=== PATIENT | female | born 1945 | race Caucasian/White ===

== ENCOUNTER 2024-08-26 09:17 | Emergency (ER) | payer MEDICARE, OTHER ==
[~2024-08-26] VITALS: Ht 162.6 cm; Wt 76.0 kg
[~2024-08-26 09:17] MED LIST: B COMPLEX1 EACH PO; CEFUROXIME500 MG PO; ELIQUIS5 MG PO; JARDIANCE10 MG PO; KRILL OIL 1,001 EACH PO; LEVOTHYROXINE100 MC2 PO; LEVOTHYROXINE100 MCG PO; OMEPRAZOLE20 MG PO; OZEMPIC1 MG/0.71 SUB-Q; TRIAMTERENE-HC1 EAC3 PO
--- OUTSIDE RECORDS SUMMARY | 2024-08-26 09:23 | XMS ---
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 Juvenal has no Care Guidelines for this patient. [facility] MO[facility] T[facility] NOTE: Visits indicate total known visits. ED/C VISIT TRACKING (12 MO.) [facility]24 09[facility] COMPLAINT: - VOMITING 08/11/2024 11:11 [facility] [place] TYPE: Emergency COMPLAINT: - WEAKNESS INPATIENT VISIT TRACKING (12 MO.) 08/11/2024 17:00 [facility] [place] TYPE: Medical Surgical COMPLAINT: - UTI DIAGNOSES: - Allergy status to other drugs, medicaments and biological substances - Allergy status to other drugs, medicaments and biological substances - Anemia, unspecified - Anemia, unspecified - Disorientation, unspecified - Disorientation, unspecified - Essential (primary) hypertension - Essential (primary) hypertension - Extrapyramidal and movement disorder, unspecified - Extrapyramidal and movement disorder, unspecified - Gastro-esophageal reflux disease without esophagitis - Gastro-esophageal reflux disease without esophagitis - Hormone replacement therapy - Hormone replacement therapy - Hypothyroidism, unspecified - Hypothyroidism, unspecified - ferry terminal agent (current) use of anticoagulants - shelter (current) use of anticoagulants - shelter (current) use of oral hypoglycemic drugs - ferry terminal agent (current) use of oral hypoglycemic drugs - Malignant neoplasm of duodenum - Malignant neoplasm of duodenum - Other fecal abnormalities - Other fecal abnormalities - Other terminal manager (current) drug therapy - Other terminal manager (current) drug therapy - Personal history of other diseases of the digestive system - Personal history of other diseases of the digestive system - Problems related to living alone - Problems related to living alone - Type 2 diabetes mellitus without complications - Type 2 diabetes mellitus without complications - Unspecified atrial fibrillation - Unspecified atrial fibrillation - Urinary tract infection, site not specified - Urinary tract infection, site not specified - Weakness [email or web address]
[2024-08-26] MEDS ORDERED: ELIQUIS5 MG PO (09:36)
[2024-08-26] MEDS ORDERED: SUCRALFATE1 GM PO (09:37)
[2024-08-26 09:42] LABS: EOSINOPHILS 3.3 % (0.7-5.8); HEMATOCRIT 32.1 % (34.1-44.9); HEMOGLOBIN 10.2 g/dL (11.2-15.7); LYMPHOCYTES 22.9 % (19.3-51.7); MCH 27.5 PG (25.6-32.2); MCHC 31.8 g/dL (32.2-35.5); MCV 86.5 fL (79.4-94.8); MONOCYTES 10.8 % (4.7-12.5); NEUTROPHILS 60.5 % (34.0-71.1); PLATELET COUNT 375 K/uL (182-369); RBC 3.71 M/uL (3.93-5.22)
[2024-08-26] MEDS ORDERED: ondansetron HCL 4 MG/2 ML VIAL IV ONE ×2 (09:45→10:15)
[2024-08-26 09:55] LABS: ALBUMIN 3.4 g/dL (3.4-5.0); ALBUMIN/GLOBULIN RATIO 0.87 (1.1-2.4); ANION GAP 14.8 (7-21); BILIRUBIN, TOTAL 0.5 mg/dL (0.2-1.0); BUN/CREATININE RATIO 20.43 (6.0-28.6); CALCIUM 10.1 mg/dL (8.5-10.1); CREATININE, SERUM 0.93 mg/dL (0.55-1.02); MAGNESIUM 1.9 mg/dL (1.8-2.4); POTASSIUM 3.8 mmol/L (3.5-5.1); PROTEIN, TOTAL 7.3 g/dL (6.4-8.2)
[2024-08-26] MEDS ORDERED: SODIUM CHLORIDE 0.9% 1,000 ML IV PRN (10:15)
[2024-08-26] MEDS ORDERED: HYDROmorphone HCL 1 MG/ML SYR IV ONE (10:15)
[2024-08-26] MEDS ORDERED: MIDAZOLAM HCL 2 MG/2 ML VIAL IV ONE (10:45)
[2024-08-26] MEDS ORDERED: PROCHLORPERAZINE EDISYLATE 10 MG/2 ML VIAL IV ONE (11:15)
[2024-08-26] MEDS ORDERED: diphenhydrAMINE HCL 50 MG/ML VIAL IV ONE (11:15)
[2024-08-26] MEDS ORDERED: HYDROCODONE-AC473 M1 PO (14:03)
[2024-08-26] MEDS ORDERED: ONDANSETRON ODT4 MG PO (14:03)
[2024-08-26] MEDS ORDERED: OXYCODONE HCL 20 MG/ML SYR PO ONE (15:00)
[2024-08-26 15:08] VITALS: BP 157/63
--- NOTE | 2024-08-27 13:13 | CONS ---
[facility] [address] [place], [place] [address] Signed DATE OF CONSULTATION: 08/26/2024 REQUESTING PHYSICIAN: Dr. Lazaro (Braden Lazaro). 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 HISTORY OF PRESENT ILLNESS: This 79-year-old white woman is known to me from the past. Recently hospitalized into the hospitalist service for urinary tract infection. Subsequently found to have anemia and upper endoscopy confirmed a large mass of the duodenum and distal stomach. Biopsies proved a high-grade B-cell lymphoma. She had concurrent ulceration which accounted for the anemia. Treatment included initiation of PPI medication and Carafate. The patient is generally chronically anticoagulated related to atrial fibrillation. I had seen her following her hospitalization last week, anticipating placement of a Port-A-Cath today. Unfortunately, the operation had to be canceled as she forgot that she was supposed to be off Eliquis, though it was emphasized to her and her sons who accompanied her at the visit. The patient presented today to the emergency room having complaints of abdominal pain. Evaluation by Dr. Lazaro included a CT scan of the abdomen which confirmed a previously irregular soft tissue mass at the level of the descending duodenum extending to the gastroduodenal junction, currently measuring 13.4 cm, previously 11.5 cm. There is no evidence of true gastroduodenal outlet obstruction at this time, though I am mindful that that was a hazard. An appointment with Dr. Wheeler, medical oncologist was anticipated for September 04. The patient's main issue has been epigastric pain. She is taking the Carafate and PPI medication as prescribed. She did have some bilious vomiting earlier this morning. She has been restricted in her diet primarily to liquids and soft food, specifically Ensure. Evaluation by Dr. Lazaro in addition to the CT scan showed her CBC to show white count of 6.38, hematocrit 32.1, which is somewhat elevated compared to discharge and platelet count 375,000. Her Chem profile showed a glucose of 162, creatinine of 93. Liver enzymes are now elevated with an SGOT of 481, SGPT 341, alkaline phosphatase of 540, though bilirubin normal at 0.5. REVIEW OF SYSTEMS: Electronically Signed By: KINGSTON GOLDMAN MD 08/27/24 1313 PATIENT NAME: KANG LARA CONSULTATION DATE OF : 45 REPORT #: [id number] PHYSICIAN: KINGSTON GOLDMAN MD PCP: ISADORA GODINEZ REPORT IS CONFIDENTIAL AND NOT TO BE RELEASED WITHOUT AUTHORIZATION [facility] [address] [place], [place] [address] Signed She is having no dysphagia. She did have some vomiting but that has only been rare and not a persistent problem. Her abdominal pain is in the epigastric and right subcostal area as would be expected. PHYSICAL EXAMINATION: GENERAL: Pleasant white woman who is alert and oriented. She is not systemically toxic. She is not dehydrated. She has received 1 L of crystalloid solution in the emergency room. She is accompanied by her daughter and her son. HEENT: Mucous membranes reasonably moist. ABDOMEN: Without distention. EXTREMITIES: Show no clubbing, cyanosis, or edema. ASSESSMENT: I walked over to the Oncology Clinic, although Dr. Wheeler was not here today. I did affirm with the nursing staff that her appointment to be moved up to tomorrow morning at 0915. We would anticipate placement of the Port-A-Cath on Sunday in any case, and chemotherapy would hopefully be initiated promptly. Rituxan chemotherapy is anticipated most likely in this situation. The tumor itself has increased in size over the past week at least 1 and possibly 2 cm in diameter and now has some effect from a biliary standpoint by obstruction, though she does not have a dilated common duct and her bilirubin is preserved. Prompt initiation of chemotherapy will be most welcome as it is highly probable she will have a rapid response to it. There is some dense material within the lumen of the partially contracted gallbladder and mild prominence of biliary tree. She is able to tolerate oral intake dominantly and I have reviewed with the patient and her family a plan to continue with a liquid diet dominantly to include also Ensure and other high density nutritional liquids of that type. She should absolutely continue with the Carafate and PPI medication as she did have ulceration in the duodenal area and absolutely avoid Eliquis at this time. We will still plan for Port-A-Cath placement on Sunday of this week and her Rituxan can be initiated even before Port-A-Cath if that is the treatment plan that Dr. Wheeler outlines. If the patient is unable to maintain oral hydration, then hospitalization will be required with fluid resuscitation and so forth but I believe the most important intervention at this time will be initiation of chemotherapy to begin reduction of the tumor bulk and initiate control of this significant neoplasm. Operative resection is not forecast in this situation by any means; the tumor will be considered nonresectable based on its anatomic appearance and its location at the confluence of the common bile duct, pancreatic head and duodenum. If the patient should have increasing problems prior to her initiation of chemotherapy, then we will deal with them as they occur. Electronically Signed By: KINGSTON GOLDMAN MD 08/27/24 9352 PATIENT NAME: KANG LARA CONSULTATION DATE OF : 45 REPORT #: [id number] PHYSICIAN: KINGSTON GOLDMAN MD PCP: ISADORA GODINEZ REPORT IS CONFIDENTIAL AND NOT TO BE RELEASED WITHOUT AUTHORIZATION [address] [facility] [place], [place] [address] Signed MD CHARLOTTE Escobedo/JESSICA /[id number] cc: Dr. Liam Lazaro Copies: ~ Electronically Signed By: KINGSTON OGLDMAN MD 08/27/24 1313 PATIENT NAME: KANG LARA CONSULTATION DATE OF : 45 REPORT #: [id number] PHYSICIAN: KINGSTON GOLDMAN MD PCP: ISADORA GODINEZ REPORT IS CONFIDENTIAL AND NOT TO BE RELEASED WITHOUT AUTHORIZATION
== END 2024-08-26 15:11 | disposition home or self-care (01) ==
LOC: ED 09:17
PROVIDERS: Emergency Medicine
DX: K31.89 Other diseases of stomach and duodenum (principal); I10 Essential (primary) hypertension; E11.9 Type 2 diabetes mellitus without complications; I48.91 Unspecified atrial fibrillation; K21.9 Gastro-esophageal reflux disease without esophagitis; Z88.8 Allergy status to other drugs, medicaments and biological substances; Z79.01 Long term (current) use of anticoagulants; Z79.899 Other long term (current) drug therapy; Z79.890 Hormone replacement therapy
CPT/HCPCS: 36415; 74177; 80053; 83735; 85025; 96361; 96375; 96376; 99284-25; J0780; J1171; J1200; J2405; J7030

== ENCOUNTER 2024-08-29 05:55 | Day surgery (SDC) | payer MEDICARE, OTHER ==
[~2024-08-29] VITALS: Ht 162.6 cm; Wt 77.7 kg
[~2024-08-29 05:55] MED LIST changes: +CEFAZOLIN SODIUM 2 GM/20 ML SYR IV SCH; +HEParin SOD (PORCINE) 5,000 UNIT/ML SDV SUB-Q SCH; +HYDROCODONE-AC473 M1 PO; +IBLOOD GLUCOSE TEST STRIP 1 EA TEST VI PRN; +LACTATED RINGER'S 1,000 ML IV SCH; +LIDOCAINE HCL 1% 5 ML SDV INJ ONE; +ONDANSETRON ODT4 MG PO; +SUCRALFATE1 GM PO
[2024-08-29 06:21] VITALS: BP 136/51
[2024-08-29] MEDS ORDERED: MAGNESIUM200 MG PO (06:26)
[2024-08-29] MEDS ORDERED: TURMERIC500 M3 PO (06:26)
[2024-08-29] MEDS ORDERED: OCUVITE EYE +1 EACH PO (06:27)
[2024-08-29] MEDS ORDERED: VITAMIN D3125 MC2 PO (06:27)
[2024-08-29] MEDS ORDERED: COQMAX UBIQUIN200 MG PO (06:28)
[2024-08-29] MEDS ORDERED: SODIUM CHLORIDE 0.9% 100 ML IV ONE (06:49)
[2024-08-29] MEDS ORDERED: HEParin SOD (PORCINE) 5,000 UNIT/ML SDV ONE (06:49)
[2024-08-29] MEDS ORDERED: iopamidoL 30 ML VIAL ONE (06:49)
[2024-08-29] MEDS ORDERED: LIDOCAINE HCL 1% 5 ML SDV INJ ONE (07:00)
[2024-08-29] MEDS ORDERED: IBLOOD GLUCOSE TEST STRIP 1 EA TEST VI PRN (07:00)
[2024-08-29] MEDS ORDERED: CEFAZOLIN SODIUM 2 GM/20 ML SYR IV SCH (07:00)
[2024-08-29] MEDS ORDERED: HEParin SOD (PORCINE) 5,000 UNIT/ML SDV SUB-Q SCH (07:00)
[2024-08-29] MEDS ORDERED: MIDAZOLAM HCL 2 MG/2 ML VIAL ONE (07:33)
[2024-08-29] MEDS ORDERED: KETAMINE in NS 50 MG/5 ML SYR ONE (07:35)
[2024-08-29] MEDS ORDERED: dexmedeTOMIDine HCl 200 MCG/2 ML VIAL ONE (07:35)
[2024-08-29] MEDS ORDERED: propofoL 200 MG/20 ML VIAL ONE (07:37)
[2024-08-29] MEDS ORDERED: GLYCOPYRROLATE 1 MG/5 ML MDV ONE (07:37)
[2024-08-29] MEDS ORDERED: SUCCINYLCHOLINE IN 0.9% NACL 200 MG/10 ML SYRINGE ONE (07:56)
[2024-08-29] MEDS ORDERED: OXYCODON-ACETA1 EAC2 PO (09:09)
[2024-08-29] MEDS ORDERED: ACETAMINOPHEN500 MG PO (09:10)
[2024-08-29] MEDS ORDERED: OXYCODONE/APAP 7.5/325 TAB PO PRN (09:15)
[2024-08-29] MEDS ORDERED: LACTATED RINGER'S 1,000 ML IV SCH (09:15)
[2024-08-29] MEDS ORDERED: ACETAMINOPHEN 500 MG TAB PO PRN (09:15)
[2024-08-29] MEDS ORDERED: NALOXONE HCL 0.4 MG SYR IV PRN ×2 (09:15→10:00)
--- NOTE | 2024-08-29 09:26 | NUR ---
08/29/24 0926 Anitha Kuo 0848- PT PRESENTS TO PACU, SEMI LUND POSITION. DROWSY BUT ANSWERS QUESTIONS APPROPRIATELY, REPORTS PAIN 5/10 AT THIS TIME, DENIES NAUSEA. ABD SOFT, NON DISTENDED. BREATHING EVEN AND NON LABORED, ON ROOM AIR, ALL MONITORS IN PLACE. 0901- PT WAKES OFF AND ON, C/O FEELING VERY "DRY". ICE CHIP PROVIDED.
[2024-08-29] MEDS ORDERED: HYDROmorphone HCL 1 MG/ML SYR IV PRN (10:00)
[2024-08-29] MEDS ORDERED: fentaNYL citrate 50 MCG/ML SDV IV PRN (10:00)
[2024-08-29] MEDS ORDERED: ondansetron HCL 4 MG/2 ML VIAL IV PRN (10:15)
[2024-08-29 10:40] VITALS: BP 120/60
--- NOTE | 2024-08-31 14:30 | OR ---
[facility] [address] [place], [place] [address] Signed DATE OF OPERATION: 08/29/2024 SURGEON: Kingston Goldman MD PREOPERATIVE DIAGNOSIS: High-grade B-cell lymphoma of duodenum. POSTOPERATIVE DIAGNOSIS: High-grade B-cell lymphoma of duodenum. PROCEDURES: 1. Right internal jugular ultrasound-guided venous access. 2. Placement of Bard port catheter internal jugular approach, right side. 3. Surgeon-directed fluoroscopy. ANESTHESIA: Local with monitored anesthesia care, Deanna Shipman CRNA and local 15 mL of 0.25% Marcaine with epinephrine. INDICATION: This 79-year-old white woman is a patient of the [facility] in [place], [place], who recently diagnosed by me with a high-grade B-cell lymphoma of the duodenum, associated ulceration and so on. She has seen Dr. Rod Atkins and chemotherapy was initiated a few days ago. A Port-A-Cath device is needed for ongoing chemotherapy. The patient and her family understand the risk of Port-A-Cath placement including, but not limited to bleeding, infection, malposition, thrombosis, transection, embolization, and numerous other possible complications. Understanding this, she wished to proceed. FINDINGS: Good visualization of the right internal jugular vein was noted on the right side and access undertaken without problem. The catheter was placed and good function was noted with the catheter in the atriocaval junction. However, additional testing showed a kink at the insertion site at the internal jugular vein. Remedy included withdrawal of the catheter and various manipulations allowing for good function of the catheter. At conclusion, the tip of the catheter was in the supererior vena cava . The catheter is completely functional both aspirating blood and infusing heparinized saline. There is no evidence of kink at the insertion site at this time. The tip of the catheter is in the superior vena cava. Electronically Signed By: KINGSTON GOLDMAN MD 08/31/24 6191 PATIENT NAME: KANG LARA OPERATIVE REPORT DATE OF : 45 REPORT #: [id number] PHYSICIAN: KINGSTON GOLDMAN MD PCP: ISADORA GODINEZ REPORT IS CONFIDENTIAL AND NOT TO BE RELEASED WITHOUT AUTHORIZATION [facility] [address] [place], [place] [address] Signed DESCRIPTION OF PROCEDURE: The patient was brought to the operating room and given preoperative antibiotic Ancef. She was placed in supine position, arms at side and head angle to the left. A mild Trendelenburg position was maintained. The upper neck and torso was prepared with a chlorhexidine solution and draped sterilely. Interrogation of the right internal jugular vein with a SonCraftistas ultrasound device was undertaken. A conventional anatomy was noted. Local anesthetic was injected over the right sternocleidomastoid muscle and on direct visualization, the right internal jugular vein accessed showing dark nonpulsatile blood. A flexible wire was passed down the needle. The needle was removed. Fluoroscopy was then employed showing the wire in the right heart system. A pocket was created over the right pectoral area with a transverse incision after additional local anesthetic was injected. Dissection was carried through the subcutaneous tissue with electrocautery. A pocket placed over the pectoralis on the right. A previously inspected Bard port device was partially secured to the pectoralis. Incision was made at the exit site of the wire in the right neck with an 11 blade. A dilator and subsequently dilator and peel-away introducer was passed over the wire. The wire and the dilator were removed showing vigorous non-pulsatile retrograde bleeding. The previously inspected Groshong type catheter for the Bard port device was passed down the peel-away introducer to its limit. The peel-away introducer removed stabilizing the catheter during that time. The catheter was aspirated, showing dark nonpulsatile blood and easily flushed. Under fluoroscopic control with the patient now in a neutral position, the tip of the catheter was manipulated to the atriocaval junction. A tunneling device was used to go over the clavicle ultimately delivering the catheter to the pocket. The catheter was trimmed to the appropriate length and secured to the port device within close collar device. Access through the port with an angled Last needle showed easy withdrawal of blood and infusion of heparinized saline. Fluoroscopy was used to confirm the position. With additional testing of the catheter, it appeared a bit more difficult to aspirate on the catheter. Inspection at the neck incision site showed a kink. The kink was such that it could be remedied by withdrawing the catheter towards the pectoralis and the catheter was would withdrawn a few centimeters, trimmed, and re-secured to the port device in the usual way per jewel stripper instructions. At that point, aspiration and irrigation was quite normal. Fluoroscopy was once again used to visualize the catheter. The kinked area was completely resolved, but the catheter had been withdrawn higher and the tip noted to reside cephalad to the head of the clavicle on the flat fouroscopic view and well below it on the upright post procedure xray. Electronically Signed By: KINGSTON GOLDMAN MD 08/31/24 4390 PATIENT NAME: KANG LARA OPERATIVE REPORT DATE OF : 45 REPORT #: [id number] PHYSICIAN: KINGSTON GOLDMAN MD PCP: ISADORA GODINEZ REPORT IS CONFIDENTIAL AND NOT TO BE RELEASED WITHOUT AUTHORIZATION [facility] [address] [place] [place] [address] Signed The port pocket was closed with interrupted Vicryl and running subcuticular 3-0 Vicryl for the skin. Steri-Strips were applied as was an Acticoat dressing. She was taken to recovery room in good condition having suffered no known complications. A chest x-ray is pending. MD CHARLOTTE Escobedo/JESSICA /[id number] cc: JOHNS[facility] MD Copies: ROD ATKINS MD ~ Electronically Signed By: KINGSTON GOLDMAN MD 08/31/24 1430 PATIENT NAME: KANG LARA OPERATIVE REPORT DATE OF : 45 REPORT #: [id number] PHYSICIAN: KIGNSTON GOLDMAN MD PCP: ISADORA GODINEZ REPORT IS CONFIDENTIAL AND NOT TO BE RELEASED WITHOUT AUTHORIZATION
== END 2024-08-29 09:55 | disposition home or self-care (01) ==
LOC: DS 05:55
PROVIDERS: ATTEND Surgery
PROC: 02HV33Z Insertion of Infusion Device into Superior Vena Cava, Percutaneous Approach (ICD-10-PCS; 2024-08-29)
PROC: 0JH60WZ Insertion of Totally Implantable Vascular Access Device into Chest Subcutaneous Tissue and Fascia, Open Approach (ICD-10-PCS; principal; 2024-08-29 07:30)
DX: C85.19 Unspecified B-cell lymphoma, extranodal and solid organ sites (principal); D63.0 Anemia in neoplastic disease; E03.9 Hypothyroidism, unspecified; I10 Essential (primary) hypertension; N39.0 Urinary tract infection, site not specified; Z79.01 Long term (current) use of anticoagulants; Z79.84 Long term (current) use of oral hypoglycemic drugs; Z79.890 Hormone replacement therapy; Z79.899 Other long term (current) drug therapy; Z88.5 Allergy status to narcotic agent; Z88.8 Allergy status to other drugs, medicaments and biological substances
CPT/HCPCS: 00532; 71045; 77001; C1788; J0330; J1644; J2250; J2704; J3490; J7121

== ENCOUNTER 2024-09-05 19:30 | Emergency (ER) | payer MEDICARE, OTHER ==
[~2024-09-05] VITALS: Ht 162.6 cm; Wt 76.4 kg
[~2024-09-05 19:30] MED LIST changes: +ACETAMINOPHEN500 MG PO; -CEFAZOLIN SODIUM 2 GM/20 ML SYR IV SCH; +COQMAX UBIQUIN200 MG PO; -HEParin SOD (PORCINE) 5,000 UNIT/ML SDV SUB-Q SCH; -IBLOOD GLUCOSE TEST STRIP 1 EA TEST VI PRN; -LACTATED RINGER'S 1,000 ML IV SCH; -LIDOCAINE HCL 1% 5 ML SDV INJ ONE; +MAGNESIUM200 MG PO; +OCUVITE EYE +1 EACH PO; +OXYCODON-ACETA1 EAC2 PO; +TURMERIC500 M3 PO; +VITAMIN D3125 MC2 PO
--- OUTSIDE RECORDS SUMMARY | 2024-09-05 19:37 | XMS ---
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 Juvenal has no Care Guidelines for this patient. Kitty VIS[facility] COUNT (12 MO.) [facility] T[facility] NOTE: Visits indicate total known visits. ED/C VISIT TRACKING (12 MO.) 09/05/2024 19:31 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 - Nausea with vomiting, unspecified - Other diseases of stomach and duodenum - Other correction (current) drug therapy - Type 2 diabetes mellitus without complications - Unspecified atrial fibrillation 08/11/2024 11:11 [facility] [place] TYPE: Emergency [...] - Hypothyroidism, unspecified - Hypothyroidism, unspecified - [facility]CC (current) use of anticoagulants - MCC (current) use of anticoagulants - MCC (current) use of oral hypoglycemic drugs - MCC (current) use of oral hypoglycemic drugs - Malignant neoplasm of duodenum - Malignant neoplasm of duodenum - Other fecal abnormalities - Other fecal abnormalities - Other ferry terminal agent (current) drug therapy - Other ferry terminal agent (current) drug therapy - Personal history of [...] tract infection, site not specified - Weakness [email or web address]
[2024-09-05] MEDS ORDERED: METFORMIN HCL500 MG PO (19:49)
[2024-09-05 20:15] LABS: HEMATOCRIT 27.6 % (34.1-44.9); HEMOGLOBIN 8.9 g/dL (11.2-15.7); MCH 26.5 PG (25.6-32.2); MCHC 32.2 g/dL (32.2-35.5); MCV 82.1 fL (79.4-94.8); PLATELET COUNT 347 K/uL (182-369); RBC 3.36 M/uL (3.93-5.22)
[2024-09-05] MEDS ORDERED: KETOROLAC TROMETHAMINE 30 MG/ML VIAL IV ONE (20:15)
[2024-09-05] MEDS ORDERED: ondansetron HCL 4 MG TAB PO ONE (20:15)
[2024-09-05] MEDS ORDERED: Methylnaltrexone Bromide 12 MG/0.6 ML VIAL SUB-Q ONE (20:15)
[2024-09-05] MEDS ORDERED: GLYCERIN 2 GM SUPP PR ONE (20:15)
[2024-09-05] MEDS ORDERED: FAMOTIDINE 20 MG/ 2 ML VIAL IV ONE (20:15)
[2024-09-05 20:24] LABS: ALBUMIN 2.8 g/dL (3.4-5.0); ALBUMIN/GLOBULIN RATIO 0.76 (1.1-2.4); ANION GAP 16.7 (7-21); BILIRUBIN, TOTAL 0.3 mg/dL (0.2-1.0); BUN/CREATININE RATIO 27.63 (6.0-28.6); CALCIUM 8.7 mg/dL (8.5-10.1); CREATININE, SERUM 0.76 mg/dL (0.55-1.02); POTASSIUM 3.7 mmol/L (3.5-5.1); PROTEIN, TOTAL 6.5 g/dL (6.4-8.2)
[2024-09-05 20:41] LABS: BASOPHILS, MANUAL DIFF 6; EOSINOPHILS, MANUAL DIFF 1; LYMPHOCYTES, MANUAL DIFF 59; MONOCYTES, MANUAL DIFF 23; NEUTROPHILS, MANUAL DIFF 11
[2024-09-05 21:18] LABS: BILIRUBIN, URINE NEGATIVE (negative); BLOOD/HGB, URINE NEGATIVE (Negative); KETONE, URINE NEGATIVE (Negative); LEUK ESTERASE, URINE NEGATIVE (negative); NITRITE, URINE NEGATIVE (negative); PH, URINE 5.5 (5-7)
[2024-09-05] MEDS ORDERED: RELISTOR150 MG PO (23:01)
[2024-09-05 23:04] VITALS: BP 135/56
== END 2024-09-05 23:18 | disposition home or self-care (01) ==
LOC: ED 19:30
PROVIDERS: Internal Medicine
DX: K59.03 Drug induced constipation (principal); T40.2X5A Adverse effect of other opioids, initial encounter; I10 Essential (primary) hypertension; E11.9 Type 2 diabetes mellitus without complications; E03.9 Hypothyroidism, unspecified; I48.91 Unspecified atrial fibrillation; K21.9 Gastro-esophageal reflux disease without esophagitis; Z79.899 Other long term (current) drug therapy; Z91.018 Allergy to other foods; Z91.013 Allergy to seafood; Z88.5 Allergy status to narcotic agent; Z88.8 Allergy status to other drugs, medicaments and biological substances
CPT/HCPCS: 36415; 74177; 80053; 81003; 83690; 85025; 96375; 99284-25; A9270; J1885; J2212; Q9967

== ENCOUNTER 2024-09-29 14:16 | Observation (INO) | payer MEDICARE, OTHER ==
[~2024-09-29] VITALS: Ht 162.6 cm; Wt 74.7 kg
[~2024-09-29 14:16] MED LIST changes: +METFORMIN HCL500 MG PO; +RELISTOR150 MG PO
--- OUTSIDE RECORDS SUMMARY | 2024-09-29 14:23 | XMS ---
PreManage Notification: KANG LARA Security Avionics Systems Technician Events No recent Security Events currently on file CRITERIA MET - [facility] - 2 Visits in 30 Days CARE PROVIDERS There are no care providers on record at this time. Juvenal has no Care Guidelines for this patient. Kitty V[facility] COUNT (12 MO.) [facility] T[facility] 4 NOTE: Visits indicate total known visits. ED/C VISIT TRACKING (12 MO.) 09[facility]29[facility]24 14:[facility] [place] [facility] COMPLAINT: - COLD SYMPTOMS 09/05/2024 19:31 [facility] [place] TYPE: Emergency COMPLAINT: - ABD PAIN DIAGNOSES: - Adverse effect of other opioids, initial encounter - Allergy status to narcotic agent - Allergy status to other drugs, medicaments and biological substances - Allergy to other foods - Allergy to seafood - Drug induced constipation - Essential (primary) hypertension - Gastro-esophageal reflux disease without esophagitis - Hypothyroidism, unspecified - Other superintendent marine oil terminal (current) drug therapy - Type 2 diabetes mellitus without complications - Unspecified abdominal pain - Unspecified atrial fibrillation 08/26/2024 09:17 [facility] [place] TYPE: Emergency COMPLAINT: - VOMITING DIAGNOSES: - Allergy status to other drugs, medicaments and biological substances - Essential (primary) hypertension - Gastro-esophageal reflux disease without esophagitis - Hormone replacement therapy - residential (current) use of anticoagulants - Nausea with vomiting, unspecified - Other diseases of stomach and duodenum - Other shelter (current) drug therapy - Type 2 diabetes [...] - Hypothyroidism, unspecified - Hypothyroidism, unspecified - 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
[2024-09-29 14:51] LABS: BASOPHILS 1.4 % (0.1-1.2); EOSINOPHILS 1.9 % (0.7-5.8); LYMPHOCYTES 4.0 % (19.3-51.7); MCH 25.1 PG (25.6-32.2); MCHC 31.6 g/dL (32.2-35.5); MCV 79.2 fL (79.4-94.8); MONOCYTES 9.8 % (4.7-12.5); NEUTROPHILS 78.0 % (34.0-71.1); RBC 4.43 M/uL (3.93-5.22)
[2024-09-29 15:01] LABS: ALT (SGPT) 26.0 U/L (14-59); AST (SGOT) 19.0 U/L (15-37); GLOMERULAR FILTRATION RATE,EST 74.0 mL/min (>60); PROTEIN, TOTAL 7.6 g/dL (6.4-8.2); UREA NITROGEN 20.0 mg/dL (7-18)
[2024-09-29] MEDS ORDERED: SODIUM CHLORIDE 0.9% 1,000 ML IV ONE (15:30)
[2024-09-29 15:36] LABS: INR 1.06 (0.80-1.30); PROTIME 13.1 Sec (11.2-14.2)
[2024-09-29] MEDS ORDERED: AZITHROMYCIN 500 MG in DEXTROSE 5% 250 ML IV ONE (15:45)
[2024-09-29] MEDS ORDERED: SODIUM CHLORIDE 0.9% 600 ML IV PRN (15:45)
[2024-09-29 16:02] LABS: LACTIC ACID, BLOOD 1.2 mmol/L (0.4-2.0)
[2024-09-29 17:15] LABS: BLOOD/HGB, URINE MODERATE (Negative); KETONE, URINE SMALL (Negative); LEUK ESTERASE, URINE NEGATIVE (negative); NITRITE, URINE POSITIVE (negative)
[2024-09-29] MEDS ORDERED: ACETAMINOPHEN 325 MG TAB PO ONE (17:15)
[2024-09-29 17:22] LABS: BACTERIA, URINE 1+ /hpf (negative); CASTS, URINE NONE SEEN \\lpf; CRYSTALS, URINE NONE SEEN (0-1+); EPITHELIAL CELLS, URINE SQUAMOUS 1+ /lpf (0-1+); REFLEX CULTURE, URINE Yes (No)
[2024-09-29 17:57] LABS: INFLUENZA B NAA NEGATIVE (NEGATIVE); RESPIRATORY SYNCYTIAL VIR NAA NEGATIVE (NEGATIVE)
[2024-09-29] MEDS ORDERED: PANTOPRAZOLE SODIUM 40 MG/10 ML VIAL IV ONE (19:30)
[2024-09-29 20:12] VITALS: BP 125/57
[2024-09-29 20:30] VITALS: BP 125/57
--- NOTE | 2024-09-29 20:30 | NUR ---
pt ARRIVED TO THE FLOOR VIA STRETCHER. pt ABLE TO WALK FROM THE STRETCHER TO THE BED WITH NO TROUBLES. pt GOT UP TO GO TO THE BR. IV ASSESSED, WNL. ASSESSMENT AND VITAL SIGNS DONE. ADMISSION DONE. WATER REFRESHED. pt DENIES ANY OTHER NEEDS AT THIS TIME. CALL LIGHT WITHIN REACH.
[2024-09-29] MEDS ORDERED: LINEZOLID 600 MG BAG IV SCH (21:00)
--- NOTE | 2024-09-29 21:40 | NUR ---
IN RM TO HANG IV ABX. pt RESTING IN THE BED WITH EYES CLOSED. RR EVEN AND UNLABORED. CALL LIGHT WITHIN REACH. IV ABX INFUSING PER ORDER.
[2024-09-29] MEDS ORDERED: PIPERACILLIN/TAZOBACTAM 4.5 GM in SODIUM CHLORIDE 0.9% 100 ML IV SCH (22:00)
--- NOTE | 2024-09-29 22:46 | NUR ---
IN RM TO HANG IV ABX. IV ABX INFUSING PER ORDER. pt UP TO THE BR, SBA FOR LINE/TUBE MANAGEMENT. pt DENIES ANY OTHER NEEDS AT THIS TIME. CALL LIGHT WITHIN REACH.
--- NOTE | 2024-09-29 23:30 | NUR ---
pt PLACED ON CPOX PER ORDER. pt DASATTING DOWN TO 85% ON RA WHILE ASLEEP. pt PLACED ON 2LNC AND NOW SATTING AT 92%. pt DENIES ANY OTHER NEEDS AT THIS TIME. CALL LIGHT WITHIN REACH.
[2024-09-30] VITALS (7 sets, daily range): BP systolic 113–134; BP diastolic 46–54
--- NOTE | 2024-09-30 00:46 | NUR ---
PATIENT CALLED TO USE THE TOILET. SBA TO VOID 350ML CLOUDY YELLOW URINE. PATIENT OFFERED DISPOSABLE PULL UPS AND SHE IS WEARING NOW. REPLACED CHUX DUE TO GOT WET. PATIENT IS INCONTINENT OF URINE. PATIENT IS BACK IN BED. NO OTHER NEEDS AT THIS TIME.
--- NOTE | 2024-09-30 01:54 | NUR ---
IN RM TO DO ASSESSMENT AND VITAL SIGNS. pt HAS EXPIRATORY WHEEZES IN ALL LOBES OF HER LUNGS. pt DENIES ANY OTHER NEEDS AT THIS TIME. CALL LIGHT WITHIN REACH.
--- NOTE | 2024-09-30 03:12 | NUR ---
IN RM TO STOP IV. pt IV ABX FINISHED INFUSING. pt SALINE LOCKED. pt DENIES ANY OTHER NEEDS AT THIS TIME. CALL LIGHT WITHIN REACH.
[2024-09-30 05:17] LABS: BASOPHILS 1.5 % (0.1-1.2); EOSINOPHILS 1.4 % (0.7-5.8); LYMPHOCYTES 4.6 % (19.3-51.7); MCH 24.9 PG (25.6-32.2); MCHC 30.4 g/dL (32.2-35.5); MCV 81.8 fL (79.4-94.8); MONOCYTES 11.2 % (4.7-12.5); NEUTROPHILS 74.8 % (34.0-71.1); RBC 3.90 M/uL (3.93-5.22)
[2024-09-30 05:32] LABS: ALT (SGPT) 19.0 U/L (14-59); AST (SGOT) 13.0 U/L (15-37); GLOMERULAR FILTRATION RATE,EST 88.0 mL/min (>60); PROTEIN, TOTAL 6.5 g/dL (6.4-8.2); UREA NITROGEN 13.0 mg/dL (7-18)
--- NOTE | 2024-09-30 05:53 | NUR ---
IN RM TO DO VITAL SIGNS. IV ABX INFUSING PER ORDER. pt DENIES ANY OTHER NEEDS AT THIS TIME. CALL LIGHT WITHIN REACH.
--- NOTE | 2024-09-30 07:30 | NUR ---
ASSESSMENT COMPLETE. PT SITTING UP IN CHAIR WATCHING TV. PT O2 SAT 95% ON RA. DENIES SOB OR PAIN AT THIS TIME. CPOX ON AND CALL LIGHT WITHIN REACH. NO REQUESTS AT THIS TIME.
--- NOTE | 2024-09-30 08:52 | NUR ---
ALERT AND ORIENTED IN RECLINER. PATIENT LIVES IN HOUSE WITH STAIRS. STATES THE STAIRS ARE WHAT HAVE KEPT HER MOBILE SHE HAS LIVED IN THE SAME HOUSE FOR 50 YEARS. PATIENT HAS NO DME. DRIVES AT BASELINE AND STATES SHE HAS BEEN BLESSED BECAUSE SHE CAN PAY UTILITIES AND FOR FOOD AND MEDICATIONS WITHOUT ANY ISSUES. PLANS TO RETURN HOME, PREFERS TO RETURN HOME TODAY IF POSSIBLE. DENIES ANY CM NEEDS AT THIS TIME.
--- NOTE | 2024-09-30 09:00 | NUR ---
AM CARE AND BED LINEN CHANGE PROVIDED BY JAD Linda CNA.
[2024-09-30] MEDS ORDERED: ENOXAPARIN SODIUM 40 MG/0.4 ML SYR SUB-Q SCH (09:12)
[2024-09-30] MEDS ORDERED: IBLOOD GLUCOSE TEST STRIP 1 EA TEST XX PRN (09:15)
[2024-09-30] MEDS ORDERED: GLUCAGON,HUMAN RECOMBINANT 1 MG/ML VIAL SUB-Q PRN (09:15)
[2024-09-30] MEDS ORDERED: DEXTROSE 5% 1,000 ML IV PRN (09:15)
[2024-09-30] MEDS ORDERED: DEXTROSE 50% 50 ML SYR IV PRN ×2 (09:15)
[2024-09-30] MEDS ORDERED: ACETAMINOPHEN 325 MG TAB PO PRN (09:15)
[2024-09-30] MEDS ORDERED: PANTOPRAZOLE SODIUM 40 MG TABEC PO SCH (09:15)
[2024-09-30] MEDS ORDERED: APIXABAN 5 MG TAB PO SCH (09:15)
--- NOTE | 2024-09-30 09:27 | NUR ---
MRSA SWAB COLLECTED ORDERED. PT SITTING UP IN CHAIR WITH CALL LIGHT WITHIN REACH. NO REQUESTS AT THIS TIME.
--- NOTE | 2024-09-30 10:57 | NUR ---
PT SITTING UP IN CHAIR WITH LEGS ELEVATED WATCHING TV. NO REQUESTS AT THIS TIME. O2 96% ON RA. PT HAS OCCASIONAL COUGH AND A "RUNNY NOSE". CALL LIGHT WITHIN REACH.
[2024-09-30] MEDS ORDERED: SUCRALFATE 1 GM TAB PO SCH (11:00)
--- NOTE | 2024-09-30 11:17 | NUR ---
PT NOT AVAILABLE FOR VISIT. PROVIDED PRAYER.
[2024-09-30] MEDS ORDERED: AMOX TR-K CLV1 EAC1 PO (11:48)
[2024-09-30] MEDS ORDERED: LEVOFLOXACIN750 MG PO (11:49)
[2024-09-30] MEDS ORDERED: INSULIN LISPRO 100 UNIT/ML ML SUB-Q SCH (12:00)
[2024-09-30] MEDS ORDERED: IBLOOD GLUCOSE TEST STRIP 1 EA TEST VI SCH (12:00)
[2024-09-30] MEDS ORDERED: PHARMACY RENAL DOSE ADJUSTMENT 1 DOSE MISC PO SCH (12:00)
--- NOTE | 2024-09-30 13:20 | NUR ---
UR CLINICAL REVIEW: 2 MN FOR VERSALUS-PER ADJUNCT FACULTY MEETS OBS FOR PNEUMONIA WITH NEED FOR MONITORING AND ABX OBS 09/29/24 @1417 ORDER MATCHES REG NO AUTH REQUIRED PER MEDICARE GUIDELINES DISCHARGE TO HOME TODAY PER PATIENT REQUEST.
[2024-10-01] MEDS ORDERED: LEVOTHYROXINE SODIUM 100 MCG TAB PO SCH ×2 (07:00→09:00)
== END 2024-09-30 13:00 | disposition home or self-care (01) ==
LOC: ED 14:16 → MS 14:17
PROVIDERS: Emergency Medicine; ADMIT Student in an Organized Health Care Education/Training Program; ATTEND Student in an Organized Health Care Education/Training Program
DX: J18.9 Pneumonia, unspecified organism (principal); I48.91 Unspecified atrial fibrillation; E03.9 Hypothyroidism, unspecified; E11.9 Type 2 diabetes mellitus without complications; I10 Essential (primary) hypertension; K21.9 Gastro-esophageal reflux disease without esophagitis; C85.93 Non-Hodgkin lymphoma, unspecified, intra-abdominal lymph nodes; D84.9 Immunodeficiency, unspecified; Z79.01 Long term (current) use of anticoagulants; Z79.84 Long term (current) use of oral hypoglycemic drugs; Z79.890 Hormone replacement therapy; Z79.899 Other long term (current) drug therapy; Z91.018 Allergy to other foods; Z91.013 Allergy to seafood; Z88.5 Allergy status to narcotic agent; Z88.8 Allergy status to other drugs, medicaments and biological substances
CPT/HCPCS: 36415; 71045; 71046; 71260; 80053; 81001; 83605; 85025; 85610; 85730; 87040; 87088; 87502; 96367; 96368; 96375; 96376; 99285-25; A9270; G0378; J0456; J0696; J1815; J2020; J2405; J2470; J2543; J7030; J7060; U0002